=== PATIENT | male | born 1950 | race Caucasian/White ===

== ENCOUNTER 2017-07-03 10:53 | Inpatient (IN) | payer MEDICARE, BC ==
[~2017-07-03] VITALS: Ht 189.2 cm; Wt 147.0 kg
[~2017-07-03 10:53] MED LIST: FAMILY PHARMAC0.4 MG PO; IRON325 M1 PO; MELOXICAM PO; MOBIC 7.5MG7.5 MG PO; VITAMIN C500 MG PO
[2017-07-03] MEDS ORDERED: DEXILANT60 MG PO (11:37)
[2017-07-03] MEDS ORDERED: ZOFRAN8 MG PO (11:38)
[2017-07-03 13:06] VITALS: BP 176/61; PULSE 54; TEMP 97.3
[2017-07-03 13:09] VITALS: BP 176/61; PULSE 54; TEMP 97.3
[2017-07-03 15:31] VITALS: BP 175/64; PULSE 70; TEMP 97.9
[2017-07-03 20:15] VITALS: BP 143/75; PULSE 77; TEMP 98
[2017-07-04] VITALS (7 sets, daily range): BP systolic 116–159; BP diastolic 68–83; PULSE 70–80; TEMP 97.2–100
[2017-07-04 06:51] LABS: BASO % 0.1 % (0.0-2.0); EOS # 0.3 (0.0-0.7); EOS % 3.8 % (0-4.0); GRAN # 5.2 (1.4-6.5); GRAN % 65.1 % (42.2-75.2); HEMATOCRIT 41.7 % (42.0-52.0); HEMOGLOBIN 13.6 g/dl (13.5-18.0); LYMPH # 1.6 (1.2-3.4); LYMPH % 19.8 % (20.0-51.0); MEAN CELL VOLUME 97 fl (80.0-100.0); MEAN CORPUSCULAR HEMOGLOBIN 32 pg (27.0-31.0); MEAN CORPUSCULAR HGB CONC 33 g/dl (33.0-37.0); MEAN PLATELET VOLUME 9.6 fl (7.4-10.4); MONO # 0.9 (0.1-0.6); MONO % 10.8 % (1.7-9.3); PLATELET COUNT 345 K/mm3 (130-400); REDCELL DISTRIBUTION WIDTH-CV 12.6 % (11.5-14.5)
[2017-07-04 07:12] LABS: ALBUMIN 3.4 gm/dL (3.5-5.0); CALCIUM 8.3 mg/dL (8.4-10.2); CREATININE, serum 1.17 mg/dL (0.66-1.25); POTASSIUM 3.8 mmol/L (3.4-5.0); TOTAL PROTEIN 7.1 gm/dL (6.4-8.2)
[2017-07-05 04:00] VITALS: BP 156/77; PULSE 75; TEMP 97.9
[2017-07-05 10:43] VITALS: BP 137/77; PULSE 75; TEMP 97.5
[2017-07-05 14:28] VITALS: BP 137/77; PULSE 75
[2017-07-05 17:05] VITALS: BP 153/69; PULSE 73; TEMP 97.9
[2017-07-05 17:08] VITALS: BP 153/69; PULSE 73; TEMP 97.9
[2017-07-05 20:37] VITALS: BP 134/74; PULSE 77; TEMP 98.5
[2017-07-06] VITALS (9 sets, daily range): BP systolic 119–156; BP diastolic 47–79; PULSE 70–84; TEMP 98.6
[2017-07-06] MEDS ORDERED: AMOXICILLIN 8751 TAB PO (15:13)
== END 2017-07-06 15:40 | disposition home or self-care (01) | DRG 444 ==
LOC: MEDICAL 10:53
PROVIDERS: Family Medicine
DX: K80.00 Calculus of gallbladder with acute cholecystitis without obstruction (principal); K85.10 Biliary acute pancreatitis without necrosis or infection; I10 Essential (primary) hypertension; J44.9 Chronic obstructive pulmonary disease, unspecified; Z85.828 Personal history of other malignant neoplasm of skin
CPT/HCPCS: A9502; J2550; J2785; J7030; Q9967

== ENCOUNTER 2017-07-23 05:34 | Day surgery (SDC) | payer MEDICARE, BC ==
[2017-07-23] VITALS (7 sets, daily range): BP systolic 122–142; BP diastolic 63–86; PULSE 44–56; TEMP 97.1–97.9
[~2017-07-23] VITALS: Ht 188 cm; Wt 146.0 kg
[~2017-07-23 05:34] MED LIST changes: +AMOXICILLIN 8751 TAB PO; +DEXILANT60 MG PO; +ZOFRAN8 MG PO
[2017-07-23] MEDS ORDERED: NORVASC 5MG5 MG/TAB PO (06:15)
[2017-07-23] MEDS ORDERED: NORCO 325 MG-51 TAB PO (09:50)
== END 2017-07-23 11:45 | disposition home or self-care (01) ==
LOC: SDCO 05:34
DX: K80.12 Calculus of gallbladder with acute and chronic cholecystitis without obstruction (principal); J44.9 Chronic obstructive pulmonary disease, unspecified; K21.9 Gastro-esophageal reflux disease without esophagitis; I10 Essential (primary) hypertension; E66.01 Morbid (severe) obesity due to excess calories; Z85.828 Personal history of other malignant neoplasm of skin; M19.90 Unspecified osteoarthritis, unspecified site; Z88.1 Allergy status to other antibiotic agents; Z88.2 Allergy status to sulfonamides; G47.33 Obstructive sleep apnea (adult) (pediatric)
CPT/HCPCS: J0330; J0690; J1100; J1885; J2405; J2704; J2710; J2765; J3010; J7120; Q9967

== ENCOUNTER → 2020-02-27 | Outpatient (CLI) | payer MEDICARE, BC ==
[~2020-02-27] MED LIST changes: +NORCO 325 MG-51 TAB PO; +NORVASC 5MG5 MG/TAB PO
== END ==
LOC: COL.RAD 11:33
DX: R09.89 Other specified symptoms and signs involving the circulatory and respiratory systems (principal)

== ENCOUNTER 2021-07-26 10:23 | Day surgery (SDC) | payer MEDICARE, BC ==
[~2021-07-26] VITALS: Ht 188 cm; Wt 161.0 kg
[2021-07-26] VITALS (10 sets, daily range): BP systolic 150–162; BP diastolic 63–99; PULSE 53–61; TEMP 98.6
[2021-07-26] MEDS ORDERED: CORDARONE200 MG/TAB PO (10:37)
[2021-07-26] MEDS ORDERED: MAG-OX 400400 MG/TAB PO (10:37)
[2021-07-26 10:53] LABS: HEMATOCRIT 49.2 % (42.0-52.0); HEMOGLOBIN 16.4 g/dl (13.5-18.0); MEAN CELL VOLUME 97 fl (80.0-100.0); MEAN CORPUSCULAR HEMOGLOBIN 32 pg (27-31); MEAN CORPUSCULAR HGB CONC 33 g/dl (33.0-37.0); MEAN PLATELET VOLUME 9.1 fl (7.4-10.4); PLATELET COUNT 286 K/mm3 (130-400); REDCELL DISTRIBUTION WIDTH-CV 13.4 % (11.5-14.5)
[2021-07-26 11:01] LABS: INR 1.1 (0.8-3.0); PROTHROMBIN TIME 11.9 SECONDS (9.7-12.8)
[2021-07-26 11:03] LABS: PARTIAL THROMBOPLASTIN TIME 29.7 SECONDS (26.0-37.0)
[2021-07-26 11:08] LABS: CALCIUM 9.1 mg/dL (8.4-10.2); CREATININE, serum 1.46 mg/dL (0.72-1.25); POTASSIUM 4.3 mmol/L (3.5-4.5)
--- NOTE | 2021-07-26 11:54 | NUR ---
Sedation assessment completed after seeing patient in [facility]. See merge for all medication, intervention, and vital signs times.
--- NOTE | 2021-07-26 14:15 | NUR ---
Pt back to [facility] after left and right heart cath. TR band to rt wrist, cms intact. rt groin site from femoral vein puncture dressing is clean dry and intact, no evidence of bleeding, and no discomfort reported. pt aware of poc. Pt denies wanting to order any food, is good with just water and a diet soda. call light in reach. wctm
--- NOTE | 2021-07-26 17:00 | NUR ---
Pt is ready for discharge. Mr Lira did well during his recovery and his period of bedrest. TR band has been removed with no problem. Site dressed with bandaid, folded 2x2 and coban. rt groin femoral vein site remained soft, without evidence of bleeding throughout pt's recovery. He has now been up and ambulatory in nursing unit without any discomfort or bleeding at either site. I have reviewed dc/fu instructions with pt and his . they both verbalized understanding. IV is dc'd with cath intact, dressing applied. pt escorted to exit via wheelchair.
== END 2021-07-26 17:30 | disposition home or self-care (01) ==
LOC: COL.CAR 10:23
PROVIDERS: Internal Medicine Cardiovascular Disease
DX: I47.2 Ventricular tachycardia (principal); R06.02 Shortness of breath; I27.20 Pulmonary hypertension, unspecified; I10 Essential (primary) hypertension; G47.33 Obstructive sleep apnea (adult) (pediatric); J44.9 Chronic obstructive pulmonary disease, unspecified; Z87.891 Personal history of nicotine dependence; Z79.899 Other long term (current) drug therapy
CPT/HCPCS: C1760; C1769; C1894; J1644; J2250; J3010; Q9967

== ENCOUNTER → 2021-11-30 | Outpatient (CLI) | payer MEDICARE, BC ==
[~2021-11-30] MED LIST changes: +CORDARONE200 MG/TAB PO; +MAG-OX 400400 MG/TAB PO
== END ==
LOC: COL.PUL 07:29
DX: J44.9 Chronic obstructive pulmonary disease, unspecified (principal)

== ENCOUNTER 2021-12-23 10:29 | Inpatient (IN) | payer MEDICARE, BC ==
[~2021-12-23] VITALS: Ht 190.5 cm; Wt 155.0 kg
[2021-12-23 11:46] LABS: BASO % 0.2 % (0.0-2.0); EOS # 0.1 K/mm3 (0.0-0.7); EOS % 1.3 % (0.0-4.0); GRAN # 6.7 K/mm3 (1.4-6.5); GRAN % 74.9 % (42.2-75.2); HEMATOCRIT 45.8 % (42.0-52.0); HEMOGLOBIN 14.8 g/dl (13.5-18.0); LYMPH # 0.8 K/mm3 (1.2-3.4); LYMPH % 9.2 % (20.0-51.0); MEAN CELL VOLUME 100 fl (80.0-100.0); MEAN CORPUSCULAR HEMOGLOBIN 32 pg (27-31); MEAN CORPUSCULAR HGB CONC 32 g/dl (33.0-37.0); MEAN PLATELET VOLUME 9.1 fl (7.4-10.4); MONO # 1.3 K/mm3 (0.1-0.6); MONO % 14.1 % (1.7-9.3); PLATELET COUNT 325 K/mm3 (130-400); RED BLOOD COUNT 4.58 M/mm3 (4.20-5.60); REDCELL DISTRIBUTION WIDTH-CV 12.9 % (11.5-14.5)
[2021-12-23 12:02] LABS: ALBUMIN 2.9 gm/dL (3.4-4.8); BILIRUBIN,TOTAL 1.4 mg/dL (0.2-1.2); C-REACTIVE PROTEIN 23.94 mg/dL (0.00-0.50); CALCIUM 9.1 mg/dL (8.4-10.2); CREATININE, serum 1.67 mg/dL (0.72-1.25); POTASSIUM 4.1 mmol/L (3.5-4.5); TOTAL PROTEIN 7.8 gm/dL (6.2-8.1)
[2021-12-23 14:41] VITALS: BP 142/70; PULSE 83; TEMP 98.4
--- NOTE | 2021-12-23 18:00 | NUR ---
Patient admitted to room 306 from ED. Report recieved from MERLYN Fajardo. Pharmacy, allergies, and medications reviewed. ELENA Grant contacted regarding patient no longer taking PO amiodarone. Admission paperwork completed. VSS. Patient A&O. Patient states that he is having some aching pain in his right knee and rates it a 2/10. Denies the need for interventions at this time. VSS. Patient A&O. Call light in reach. Fall precautions in place.
[2021-12-23 19:12] VITALS: BP 149/75; PULSE 92; TEMP 97.4
--- NOTE | 2021-12-23 19:37 | NUR ---
PATIENT RESTING IN BED WITH IV PUMP TURNED OFF. PATIENT CALLED TO HAVE IV RESTARTED. THIS NURSE RESTARTED PATIENT VANCO AND 1/2 NS PER ORDERS ON EMAR. PATIENT REQUESTS HIS CPAP BE SET-UP AT BEDSIDE AT THIS TIME. THIS NURSE SET UP PATIENT CPAP INCLUDING ADDING DISTILLED WATER AT THIS TIME. PATIENT ASSESSMENT DONE AT THIS TIME. PATIENT DENIES ANY NEEDS AND OR CONCERNS AT THIS TIME. CALL LIGHT IS WITHIN REACH OF PATIENT AND PATIENT IS ENCOURAGED TO CALL WITH ANY NEEDS OR CONCERNS.
--- NOTE | 2021-12-23 20:08 | NUR ---
PATIENT TO CT AT THIS TIME.
--- NOTE | 2021-12-23 21:48 | NUR ---
2055 PATIENT REPORTS HE IS NOW ABLE TO MOVE HIS RIGHT LEG WITHOUT PAIN, AND THE PREVIOUSLY REPORTED PAIN IS NOW 0. PATIENT EXPRESSES HAPPINESS HE IS ABLE TO MOVE IT "I'VE NOT BEEN ABLE TO MOVE IT FOR 3 DAYS AND HAVE BEEN SLEEPING IN THE GARAGE BECAUSE I COULDN'T MANAGE THE STAIRS." PATIENT HAS CALL LIGHT WITHIN REACH AND ENCOURAGED TO CALL WITH ANY NEEDS OR CONCERNS.
[2021-12-23 23:12] VITALS: BP 148/62; PULSE 91; TEMP 98
[2021-12-23 23:50] LABS: MUCOUS Present (NOT PRESENT); SQUAMOUS EPITHELIAL None Seen /hpf (0-10); URINE BACTERIA None Seen /hpf (NONE SEEN); URINE RBC 0-2 /hpf (0-2)
[2021-12-24 00:09] LABS: URINE APPEARANCE Clear (CLEAR/HAZY); URINE COLOR Straw (YELLOW)
[2021-12-24 00:10] LABS: PH 6 (5-8); URINE PROTEIN(semi-quant) 2+ (NEGATIVE)
[2021-12-24 00:11] LABS: URINE GLUCOSE TRACE (NEGATIVE)
[2021-12-24 00:12] LABS: URINE BLOOD Negative (NEGATIVE); URINE KETONE Negative (NEGATIVE); URINE NITRATE Negative (NEGATIVE); URINE UROBILINOGEN >=8.0 (NEGATIVE)
[2021-12-24 04:26] VITALS: BP 151/61; PULSE 75; TEMP 98.3
--- NOTE | 2021-12-24 05:45 | NUR ---
Patient has had an uneventful night. Patient reports he still has no complaints of pain and is still able to move his right leg. Patient is independently repositioning. Patient is using his CPAP. Call light is within reach of patient and patient encouraged to call with any questions or concerns.
[2021-12-24 06:20] LABS: BASO % 0.2 % (0.0-2.0); EOS # 0.2 K/mm3 (0.0-0.7); EOS % 2.3 % (0.0-4.0); GRAN # 6.1 K/mm3 (1.4-6.5); GRAN % 72.9 % (42.2-75.2); HEMATOCRIT 44.1 % (42.0-52.0); HEMOGLOBIN 14.6 g/dl (13.5-18.0); LYMPH # 0.9 K/mm3 (1.2-3.4); LYMPH % 10.3 % (20.0-51.0); MEAN CELL VOLUME 97 fl (80.0-100.0); MEAN CORPUSCULAR HEMOGLOBIN 32 pg (27-31); MEAN CORPUSCULAR HGB CONC 33 g/dl (33.0-37.0); MEAN PLATELET VOLUME 9.2 fl (7.4-10.4); MONO # 1.2 K/mm3 (0.1-0.6); MONO % 13.9 % (1.7-9.3); PLATELET COUNT 318 K/mm3 (130-400); RED BLOOD COUNT 4.56 M/mm3 (4.20-5.60); REDCELL DISTRIBUTION WIDTH-CV 12.8 % (11.5-14.5)
[2021-12-24 06:41] LABS: CALCIUM 8.8 mg/dL (8.4-10.2); CREATININE, serum 1.44 mg/dL (0.72-1.25); MAGNESIUM 2.2 mg/dL (1.6-2.6); POTASSIUM 3.9 mmol/L (3.5-4.5)
[2021-12-24 07:58] VITALS: BP 158/87; BP 185/58; PULSE 88; TEMP 98.9
--- NOTE | 2021-12-24 09:00 | NUR ---
Pt lying down in bed. Shift assessment completed. VSS, A&O x4. Pt remains NPO and notified to RN that he normally doesn't take Mg at home. Provider notified and approved to DC medication. Pt denies pain or disconfort. Rates his pain on right knee at 0, but states he can't lift his leg. Right Forearm INT CDI, no redness or edema, fluids running on. Call light within reach.
[2021-12-24 09:25] LABS: COLLECTION METHOD CLEAN CATCH
--- NOTE | 2021-12-24 10:30 | NUR ---
NPO orders DC per Dr. Orders.
[2021-12-24 11:27] VITALS: BP 169/99; PULSE 76; TEMP 98.7
--- NOTE | 2021-12-24 11:45 | NUR ---
Notified of Vitals, BP 169/99. Provider notified.
[2021-12-24 15:37] VITALS: BP 149/61; PULSE 87; TEMP 98.4
--- NOTE | 2021-12-24 18:36 | NUR ---
Pt lying down in bed, fluids running on. He requested to work with OT/PT tomorrow if possible. Pt remains A&O. BP trending high. Pt denies any need or concerns at the moment. He refused to eat dinner. Call light within reach.
[2021-12-24 19:06] VITALS: BP 172/75; PULSE 92
--- NOTE | 2021-12-24 19:09 | NUR ---
PATIENT RESTING IN BED WATCHING TELEVISION AT THIS TIME. PATIENT REFUSED DINNER STATING HE ATE LUNCH AT 1500. PATIENT ADVISED AT MIDNIGHT HE WILL AGAIN GO NPO. EDUCATION GIVEN ON NPO AND WATER INTAKE BEFORE MIDNIGHT. PATIENT DENIES PAIN, CONCERNS OR NEEDS. CALL LIGHT IS WITHIN PATIENT REACH. PATIENT ENCOURAGED TO CALL WITH ANY NEEDS OR CONCERNS.
[2021-12-25 00:10] VITALS: BP 158/56; PULSE 93; TEMP 98
[2021-12-25 04:58] VITALS: BP 158/85; PULSE 85; TEMP 98.7
--- NOTE | 2021-12-25 05:28 | NUR ---
PATIENT HAS UNEVENTFUL NIGHT, WITH NO COMPLAINTS OF PAIN OR CONCERNS. PATIENT HAS CALL LIGHT WITHIN REACH AND ENCOURAGED TO CALL WITH ANY NEEDS OR CONCERNS. PATIENT HAS BEEN NPO SINCE MIDNIGHT.
[2021-12-25 06:07] LABS: BASO % 0.3 % (0.0-2.0); EOS # 0.3 K/mm3 (0.0-0.7); GRAN % 69.8 % (42.2-75.2); HEMOGLOBIN 14.2 g/dl (13.5-18.0); LYMPH # 1.1 K/mm3 (1.2-3.4); LYMPH % 12.8 % (20.0-51.0); MEAN CELL VOLUME 100 fl (80.0-100.0); MEAN CORPUSCULAR HEMOGLOBIN 32 pg (27-31); MEAN CORPUSCULAR HGB CONC 32 g/dl (33.0-37.0); MEAN PLATELET VOLUME 8.9 fl (7.4-10.4); MONO # 1.2 K/mm3 (0.1-0.6); MONO % 13.6 % (1.7-9.3); PLATELET COUNT 316 K/mm3 (130-400); REDCELL DISTRIBUTION WIDTH-CV 12.8 % (11.5-14.5)
[2021-12-25 06:57] LABS: ALBUMIN 2.5 gm/dL (3.4-4.8); CALCIUM 8.9 mg/dL (8.4-10.2); CREATININE, serum 1.37 mg/dL (0.72-1.25); MAGNESIUM 2.2 mg/dL (1.6-2.6); PHOSPHOROUS 2.9 mg/dL (2.3-4.7); POTASSIUM 3.9 mmol/L (3.5-4.5)
[2021-12-25 07:27] VITALS: BP 156/84; PULSE 80; TEMP 98.4
--- NOTE | 2021-12-25 09:27 | NUR ---
VSS, PT A&O X4, PT ABLE TO MAKE NEEDS KNOWN, REFUSES SCD'S, REFUSES NARCOTIC PAIN MEDICATION, FALL PRECAUTIONS IN PLACE, CALL LIGHT IN REACH
[2021-12-25 11:20] VITALS: BP 156/77; PULSE 76; TEMP 98.4
--- NOTE | 2021-12-25 14:22 | NUR ---
SW called spouse Re [phone] to complete intake due to patient being in isolation. Patient does utilize walker due to knee pain, is independent with ADL's, and does not utilize HH services at this time. PCP is Dr. Lam, and pharmacy is [facility]. Patient does not have anyone appointed specifically as his DPOA/HC according to spouse. DC plan is to return to his home after hospital stay. Spouse did not have any questions nor concerns at this time. SW will continue to follow. DC plan: home.
[2021-12-25 15:26] VITALS: BP 161/75; PULSE 88; TEMP 98.2
[2021-12-25] MEDS ORDERED: NORCO 325 MG-51 TAB PO (17:12)
--- NOTE | 2021-12-25 18:51 | NUR ---
PATIENT LAYING IN BED WATCHING TELEVISION AT THIS TIME. PATIENT DENIES PAIN, NEEDS OR CONCERNS. PATIENT HAS CALL LIGHT WITHIN REACH AND ENCOURAGED TO CALL WITH ANY NEEDS OR CONCERNS.
[2021-12-25 19:07] VITALS: BP 149/74; PULSE 91; TEMP 98.6
[2021-12-26 00:01] VITALS: BP 146/71; PULSE 90; TEMP 98.6
[2021-12-26 05:00] VITALS: BP 134/73; PULSE 87; TEMP 98.5
[2021-12-26 07:22] LABS: BASO % 0.2 % (0.0-2.0); EOS # 0.4 K/mm3 (0.0-0.7); EOS % 4.4 % (0.0-4.0); GRAN # 5.9 K/mm3 (1.4-6.5); GRAN % 71.5 % (42.2-75.2); HEMATOCRIT 44.4 % (42.0-52.0); HEMOGLOBIN 14.5 g/dl (13.5-18.0); LYMPH # 1.1 K/mm3 (1.2-3.4); LYMPH % 13.6 % (20.0-51.0); MEAN CELL VOLUME 99 fl (80.0-100.0); MEAN CORPUSCULAR HEMOGLOBIN 32 pg (27-31); MEAN CORPUSCULAR HGB CONC 33 g/dl (33.0-37.0); MEAN PLATELET VOLUME 9.1 fl (7.4-10.4); MONO # 0.8 K/mm3 (0.1-0.6); MONO % 9.7 % (1.7-9.3); PLATELET COUNT 340 K/mm3 (130-400); RED BLOOD COUNT 4.49 M/mm3 (4.20-5.60); REDCELL DISTRIBUTION WIDTH-CV 12.7 % (11.5-14.5)
[2021-12-26 07:38] LABS: ALBUMIN 2.5 gm/dL (3.4-4.8); CREATININE, serum 1.15 mg/dL (0.72-1.25); MAGNESIUM 2.2 mg/dL (1.6-2.6); PHOSPHOROUS 2.8 mg/dL (2.3-4.7); POTASSIUM 3.7 mmol/L (3.5-4.5)
[2021-12-26 08:00] VITALS: BP 135/70; PULSE 88; TEMP 98.6
--- NOTE | 2021-12-26 11:18 | NUR ---
PATIENT DISCHARGE PACKET AND EDUCATION PROVIDED. ALL QUESTIONS ANSWERED. IV REMOVED PER PROTOCOL. PATIENT SAFELY TRANSPORTED BY STAFF TO ER ENTRANCE FOR DISCHARGE TO FAMILY VEHICLE.
== END 2021-12-26 11:20 | disposition home health service (06) | DRG 537 ==
LOC: COL.ER 10:29 → MEDICAL 13:09
PROVIDERS: Internal Medicine; Nurse Practitioner; Physician Assistant; ADMIT Internal Medicine
PROC: 0S9C3ZX Drainage of Right Knee Joint, Percutaneous Approach, Diagnostic (ICD-10-PCS; principal; 2021-12-23)
DX: S76.111A Strain of right quadriceps muscle, fascia and tendon, initial encounter (principal); J91.8 Pleural effusion in other conditions classified elsewhere; Z68.41 Body mass index [BMI] 40.0-44.9, adult; M25.061 Hemarthrosis, right knee; G47.33 Obstructive sleep apnea (adult) (pediatric); Z20.822 Contact with and (suspected) exposure to COVID-19; M25.461 Effusion, right knee; J44.9 Chronic obstructive pulmonary disease, unspecified; Z96.653 Presence of artificial knee joint, bilateral; I12.9 Hypertensive chronic kidney disease with stage 1 through stage 4 chronic kidney disease, or unspecified chronic kidney disease; N18.9 Chronic kidney disease, unspecified; E66.9 Obesity, unspecified; Z88.1 Allergy status to other antibiotic agents; Z72.89 Other problems related to lifestyle; Z87.891 Personal history of nicotine dependence; Z88.2 Allergy status to sulfonamides; Z88.8 Allergy status to other drugs, medicaments and biological substances; Y92.89 Other specified places as the place of occurrence of the external cause
CPT/HCPCS: J0696; J1170; J3370; J7040; J7050